=== PATIENT | female | born 1965 | race African-American/Black ===

== ENCOUNTER 2020-04-29 09:19 | Emergency (ER) | payer OTHER ==
[~2020-04-29] VITALS: Ht 172.7 cm; Wt 97.5 kg
[2020-04-29] MEDS ORDERED: NORVASC 2.5 MG2.5 M1 PO (09:31)
[2020-04-29] MEDS ORDERED: COZAAR 25 MG TA25 MG PO (09:31)
[2020-04-29] MEDS ORDERED: HYDROCHLOROTHIA25 M2 PO (09:31)
[2020-04-29 10:32] VITALS: BP 159/76
== END 2020-04-29 10:33 | disposition home or self-care (01) ==
LOC: M.ERS 09:19
DX: S01.112A Laceration without foreign body of left eyelid and periocular area, initial encounter (principal); I10 Essential (primary) hypertension; Z90.710 Acquired absence of both cervix and uterus; W22.8XXA Striking against or struck by other objects, initial encounter; Y93.89 Activity, other specified; Y92.89 Other specified places as the place of occurrence of the external cause; Y99.8 Other external cause status